=== PATIENT | male | born 1960 | race Caucasian/White ===

== ENCOUNTER 2016-05-12 13:00 | Outpatient (RCR) | payer BC | END 2016-05-28 | disposition home or self-care (01) | LOC: PTY 13:00 | DX: M20.11 Hallux valgus (acquired), right foot (principal) ==

== ENCOUNTER 2016-11-22 13:00 | Outpatient (RCR) | payer BC | END 2016-11-27 | disposition home or self-care (01) | LOC: PTY 13:00 | DX: M20.21 Hallux rigidus, right foot (principal) | CPT/HCPCS: 97110; 97140; 97161; G0283 ==

== ENCOUNTER 2016-12-20 13:00 | Outpatient (RCR) | payer BC | END 2016-12-28 | disposition home or self-care (01) | LOC: PTY 13:00 | DX: M20.21 Hallux rigidus, right foot (principal); M20.5X1 Other deformities of toe(s) (acquired), right foot; M20.11 Hallux valgus (acquired), right foot | CPT/HCPCS: 97110; 97140; G0283 ==

== ENCOUNTER → 2017-01-27 | Outpatient (RCR) | payer BC | END | disposition home or self-care (01) | LOC: PTY 13:00 | DX: M20.5X1 Other deformities of toe(s) (acquired), right foot (principal); M20.21 Hallux rigidus, right foot; M76.00 Gluteal tendinitis, unspecified hip ==

== ENCOUNTER 2017-02-03 13:35 | Outpatient (RCR) | payer BC | END 2017-02-27 | disposition home or self-care (01) | LOC: PTY 13:35 | DX: M76.9 Unspecified enthesopathy, lower limb, excluding foot (principal); M67.02 Short Achilles tendon (acquired), left ankle; M67.01 Short Achilles tendon (acquired), right ankle; M20.21 Hallux rigidus, right foot ==

== ENCOUNTER 2017-03-02 13:16 | Outpatient (RCR) | payer BC | END 2017-03-30 | disposition home or self-care (01) | LOC: PTY 13:16 | DX: M20.21 Hallux rigidus, right foot (principal); M76.9 Unspecified enthesopathy, lower limb, excluding foot; M76.00 Gluteal tendinitis, unspecified hip ==

== ENCOUNTER 2017-05-12 14:00 | Outpatient (RCR) | payer BC | END 2017-05-28 | disposition home or self-care (01) | LOC: PTY 14:00 | DX: M20.11 Hallux valgus (acquired), right foot (principal) ==

== ENCOUNTER 2017-06-02 14:00 | Outpatient (RCR) | payer BC | END 2017-06-27 | disposition home or self-care (01) | LOC: PTY 14:00 | DX: M20.21 Hallux rigidus, right foot (principal) | CPT/HCPCS: 97110; 97140; G0283 ==

== ENCOUNTER 2017-07-05 11:00 | Outpatient (RCR) | payer BC | END 2017-07-28 | disposition home or self-care (01) | LOC: PTY 11:00 | DX: M20.11 Hallux valgus (acquired), right foot (principal); M20.21 Hallux rigidus, right foot ==

== ENCOUNTER 2018-04-26 22:42 | Emergency (ER) | payer BC ==
[~2018-04-26] VITALS: Ht 177.8 cm; Wt 70.3 kg
[2018-04-26] MEDS ORDERED: Lidocaine 1% 10mg/ml/Epi 0.005mg/ml 30ml vial INJ ONE (23:15)
[2018-04-26 23:16] VITALS: BP 139/88
--- NOTE | 2018-04-26 23:18 | NUR ---
ED Nurse Note: patient presents to ED c/o laceration to right wrist, right index finger, and left hand. Patient states he was bitten by his neighbors dog 1 hour ago. patient reports 10/07. Patient filled out rabies form. Patient does not know about the vaccination status of the animal. patient AOx4, VSS, ambulatory with steady gait, no s/s of acute distress noted at this time. patient seen by ERMD at bedside.
[2018-04-26] MEDS ORDERED: Tetanus/Diptheria/Pertussis Vaccine 0.5ml Syr IM ONE (23:30)
[2018-04-27] MEDS ORDERED: Bacitracin Oint UD TOPIC ONE (01:15)
--- NOTE | 2018-04-27 01:15 | Emergency Room Report ---
History of Present Illness General Chief Complaint: Animal Bite Source: Patient Present Illness HPI The patient's dog was attacked by a neighbor dogs. He tried to break up the fight. He was bitten by the other dogs. His lacerations to both of his hands. The right wrist is linear. He is able to move his hands without difficulty. He is uncertain of his last tetanus shot. Bleeding was controlled with direct pressure. The pain is rated 8/10 and sharp and burning. There is some aching in his hands also. He also has swelling in his forearm. He states his fingertips are slightly numb. No anatomic numbness. Patient is HIV positive. He is taking antivirals. Allergies: Coded Allergies: SULFAMETHOXAZOLE (Verified Allergy, Unknown, 04/27/18) TRIMETHOPRIM (Verified Allergy, Unknown, 04/27/18) Patient History Past Medical History: see triage record Social History: Denies: smoking Social History Narrative Psychologist Reviewed Nursing Documentation: PMH: Agreed; PSxH: Agreed Nursing Documentation-PMH Hx Cancer: Yes - HIV+ Review of Systems Constitutional: Denies: fever Musculoskeletal: Reports: see HPI Skin: Reports: see HPI Neurological: Reports: see HPI Hematologic/Lymphatic: Reports: see HPI Physical Exam Vital Signs Date Time Temp Pulse Resp B/P (MAP) Pulse Ox O2 Delivery O2 Flow Rate FiO2 04/26/18 23:00 98.4 105 18 139/88 20 Room Air Sp02 EP Interpretation: reviewed, normal General Appearance: well appearing, no apparent distress, GCS 15 Head: normocephalic, atraumatic Eyes: bilateral eye normal inspection, bilateral eye PERRL ENT: hearing grossly normal, normal voice Neck: full range of motion, supple Respiratory: no respiratory distress, speaking full sentences Cardiovascular #1: regular rate, rhythm Cardiovascular #2: 2+ radial (R) - Capillary refill normal, 2+ radial (L) - Capillary refill normal Musculoskeletal: digits/nails normal, normal range of motion - All tendons of the hands checked and normal function. Neurologic: alert, oriented x3, motor strength/tone normal, sensory intact, other - Distal neurovascular exam normal Psychiatric: mood/affect normal Skin: laceration - Laceration right volar surface wrist, other bite horn. Procedures Laceration/Wound Repair Laceration/Wound Repair : Consent: Verbal Wound Location: upper extremity Wound's Depth, Shape: superficial Wound Length (cm): 5 - 3+1+1 Wound Explored: Bite Irrigated w/ Saline (ccs): 1000 Betadine Prep?: Yes Anesthesia: Lidocaine w/ Epi Volume Anesthetic (ccs): 3 Wound Debrided: None Wound Repaired With: sutures Suture Size/Type: 5:0, nylon Layer Closure?: No Sterile Dressing Applied?: Yes Sling Applied?: Yes Patient Tolerated: Well Complications: None Progress The wounds were copiously irrigated. Betadine prep used. Sutures approximated skin well. There were other bite horn that needed this closure. Patient tolerated the procedure well. Medical Decision Making Diagnostic Impression: Primary Impression: Dog bite Qualified Codes: W54.0XXA - Bitten by dog, initial encounter Additional Impression: Forearm lacerations ER Course Patient presents after dog bites with lacerations. Several require sutures. The wounds need irrigation. Antibiotics are indicated. Tendon and neurovascular function is normal. Patient tolerated laceration repair well. Sling is applied with good position and neurovascular is checked by me afterwards and normal. Discussed treatment plan. Patient stable for outpatient observation and treatment. Last Vital Signs Date Time Temp Pulse Resp B/P (MAP) Pulse Ox O2 Delivery O2 Flow Rate FiO2 04/27/18 01:57 98.2 95 16 137/68 98 Room Air Status: improved Disposition: HOME, SELF-CARE Condition: Improved Scripts Bacitracin (Bacitracin) 28.4 Gm Oint...g. 1 APPLIC TOPIC BID, #10 GM Prov: Joe De La O MD 04/27/18 Amoxicillin/Potassium Clav 500-125 Tablet* (AUGMENTIN 500-125 TABLET*) 1 Each Tablet 1 TAB ORAL THREE TIMES A DAY, #20 TAB Prov: Joe De La O MD 04/27/18 Tramadol Hcl* (ULTRAM*) 50 Mg Tablet 50 MG ORAL Q6H PRN for For Pain, #8 TAB 0 Refills Prov: Joe De La O MD 04/27/18 Referrals: NON PHYSICIAN (PCP) Joe De La O MD Apr 27, 2018 01:15
--- NOTE | 2018-04-27 01:30 | NUR ---
ED Nurse Note: Bacitracin, dressing, and sling applied to affected extremity.
[2018-04-27] MEDS ORDERED: AUGMENTIN 500-1 EACH ORAL (01:45)
[2018-04-27] MEDS ORDERED: TRAMADOL HCL50 MG ORAL (01:45)
[2018-04-27] MEDS ORDERED: BACITRACIN15 GM TOPIC (01:45)
--- NOTE | 2018-04-27 01:54 | NUR ---
ED Nurse Note: Patient cleared for discharge by ERMD. Patient AOx4, VSS, ambulatory with steady gait, no s/s of acute distress noted at this time. Patient provided with discharge instructions and medication prescriptions. patient verbalized understanding. patient ID band removed. Patient took all personal belongings with him. Patient instructed to follow up with PCP in 1 week. Patient stated he was driving himself home.
[2018-04-27 01:56] VITALS: BP 137/68
[2018-04-27 01:57] VITALS: BP 137/68
== END 2018-04-27 01:58 | disposition home or self-care (01) ==
LOC: EMR 23:19
DX: S51.811A Laceration without foreign body of right forearm, initial encounter (principal); W54.0XXA Bitten by dog, initial encounter; Y92.89 Other specified places as the place of occurrence of the external cause; Z23 Encounter for immunization; Z88.2 Allergy status to sulfonamides
CPT/HCPCS: 90471; 90715; 99283